=== PATIENT | male | born 1970 | race Caucasian/White ===

== ENCOUNTER 2020-07-24 07:20 | Day surgery (SDC) | payer OTHER ==
[~2020-07-24 07:20] MED LIST: Lactated Ringers 1,000 ML IV SCH; Lidocaine 1%/Sod Bicarbonate in NS 8.4% 1 ML Syringe IDERM PRN; Sodium Chloride 0.9% 10 ML Syringe FLUSH PRN
[2020-07-24] MEDS ORDERED: fentaNYL 100 MCG/2 ML SDV ONE (07:35)
[2020-07-24] MEDS ORDERED: Propofol 200 MG/20 ML SDV ONE ×2 (07:36→08:24)
[2020-07-24] MEDS ORDERED: Lidocaine 1% 4 ML ONE (07:36)
--- NOTE | 2020-07-24 08:06 | PCM.PREANE ---
Preanesthetic Assessment - Procedure Proposed Procedure: Screening Colonoscopy - Anesthesia/Transfusion/Family Hx Anesthesia History: No Prior Anesthesia Family History of Anesthesia Reaction: No - Review of Systems General: Fatigue, Appetite (Weight gain of 50 pounds. ) Pulmonary: No Symptoms (Former Smoker, 5 years ago. ) Cardiovascular: No Symptoms Gastrointestinal: No Symptoms Neurological: No Symptoms Other: Reports: None (Obesity BMI 41, large neck. ), Diabetes (type II, started metformin 1 month ago. ) - Physical Assessment NPO Status Date: 07/24/20 NPO Status Time: 04:45 (Prep) Vital Signs: Last Vital Signs Temp 36.8 C 07/24/20 07:40 Pulse 92 07/24/20 07:40 Resp 16 07/24/20 07:40 BP 141/90 H 07/24/20 07:40 Pulse Ox 97 07/24/20 07:40 Height: 1.83 m Weight: 134.263 kg ASA Class: 3 Mental Status: Alert & Oriented x3 Airway Class: Mallampati = 3 Dentition: Reports: [place](s) (Caps front top x4 ) Thyro-Mental Finger Breadths: 2 Mouth Opening Finger Breadths: 3 ROM/Head Extension: Full Lungs: Clear to Auscultation, Normal Respiratory Effort Cardiovascular: Regular Rate, Regular Rhythm - Allergies Allergies/Adverse Reactions: Allergies Allergy/AdvReac Type Severity Reaction Status Date / Time No Known Allergies Allergy Verified 07/23/20 13:40 - Acknowledgements Anesthesia Type Planned: MAC Pt an Appropriate Candidate for the Planned Anesthesia: Yes Alternatives and Risks of Anesthesia Discussed w Pt/Guardian: Yes Pt/Guardian Understands and Agrees with Anesthesia Plan: Yes PreAnesthesia Questionnaire - Past Health History Medical/Surgical History: Denies Medical/Surgical History HEENT History: Reports: Impaired Vision, Other (See Below) Other HEENT History: WEARS GLASSES Cardiovascular History: Reports: High Cholesterol, Hypertension Respiratory History: Reports: None Gastrointestinal History: Reports: None Genitourinary History: Reports: BPH, Other (See Below) Other Genitourinary History: ERECTILE DYSFUNCTION [employer]ATION [employer]CHITECT History: Reports: None Musculoskeletal History: Reports: Back Pain, Chronic, Fracture Other Musculoskeletal History: pt reports broke back while in [employer] Neurological History: Reports: None Psychiatric History: Reports: None Endocrine/Metabolic History: Reports: Diabetes, Type II, Obesity/BMI 30+ Hematologic History: Reports: None Immunologic History: Reports: None Oncologic (Cancer) History: Reports: None Dermatologic History: Reports: None - Infectious Disease History Infectious Disease History: Reports: Chicken Pox - Past Surgical History Head Surgeries/Procedures: Reports: None Cardiovascular Surgical History: Reports: None Respiratory Surgical History: Reports: None GI Surgical History: Reports: None Female Surgical History: Reports: None Male Surgical History: Reports: None Endocrine Surgical History: Reports: None Neurological Surgical History: Reports: None Oncologic Surgical History: Reports: None Dermatological Surgical History: Reports: None - SUBSTANCE USE Tobacco Use Status *Q: Former Tobacco User - HOME MEDS Home Medications: Home Meds Fish Oil/[place]-3 Fatty Acids [Fish Oil 1,000 MG] 1 gm PO DAILY 07/23/20 [History] atorvaSTATin Calcium [Lipitor] 20 mg PO DAILY 07/23/20 [History] metFORMIN HCl [Metformin HCl] 500 mg PO BEDTIME 07/23/20 [History] - CURRENT (IN HOUSE) MEDS Current Meds: Current Medications Lactated Ringer's (Ringers, Lactated) 1,000 mls @ 125 mls/hr IV ASDIRECTED CEASAR Stop: 07/24/20 23:00 Lidocaine/Sodium Bicarbonate (Lidocaine 1%/Sod Bicarbonate In Ns 8.4% 1 Ml Syringe) 0.25 ml IDERM ONETIME PRN PRN Reason: Prior to IV Start Stop: 07/24/20 18:00 Sodium Chloride (Sodium Chloride 0.9% 10 Ml Syringe) 10 ml FLUSH ASDIRECTED PRN PRN Reason: Keep Vein Open Stop: 07/24/20 18:00 Discontinued Medications Fentanyl (Fentanyl 100 Mcg/2 Ml Sdv) Confirm Administered Dose 100 mcg .ROUTE .STK-MED ONE Stop: 07/24/20 07:36 Lidocaine HCl (Xylocaine-Mpf 1%) Confirm Administered Dose 4 mls @ as directed .ROUTE .STK-MED ONE Stop: 07/24/20 07:37 Propofol (Propofol 200 Mg/20 Ml Sdv) Confirm Administered Dose 400 mg .ROUTE .STK-MED ONE Stop: 07/24/20 07:37
--- NOTE | 2020-07-24 08:35 | PCM.PRNOTE ---
- Free Text/Narrative Note: Date: 07/24/2020 Procedure: initial screening colonoscopy Endoscopist: Austyn Ambriz MD Findings: good prep. Large well circumscribed submucosal mass in cecum consistent with lipoma. Single small pedunculated polyp at hepatic flexure. Detailed Report: The patient was taken to the endoscopy suite and placed in left lateral decubitus position. Timeout was performed and monitored anesthesia care was initiated. Visual inspection of the anus revealed no abnormality and digital rectal exam was unremarkable. The colonoscope was inserted and advanced all the way to the cecum. The appendiceal orifice was visualized. There appeared to be a large, approximately 3 cm submucosal well-circumscribed mass consistent with lipoma at the lateral base of the cecum. Jumbo forceps were used to obtain an adequate sample of the mass in order to confirm diagnosis of benign lipoma. The scope was slowly withdrawn and mucosal surfaces were carefully inspected. Prep was very good. At about the level of the hepatic flexure a less than 1 cm pedunculated polyp was identified. This was removed in its entirety with cold forceps. No other polyps were identified. There was no diverticular disease noted. On retroflexion in the rectum, no hemorrhoids were noted. Air was suctioned from the colon prior to withdrawal of the scope. The patient tolerated the procedure well.
--- NOTE | 2020-07-24 08:41 | PCM48HPAN ---
Post Anesthesia Note - EVALUATION WITHIN 48HRS OF ANESTHETIC Vital Signs in Normal Range: Yes Patient Participated in Evaluation: Yes Respiratory Function Stable: Yes Airway Patent: Yes Cardiovascular Function Stable: Yes Hydration Status Stable: Yes Pain Control Satisfactory: Yes Nausea and Vomiting Control Satisfactory: Yes Mental Status Recovered: Yes Vital Signs: Last Vital Signs 0833 Temp 97.6 F 07/24/20 07:40 Pulse 100 07/24/20 07:40 Resp 16 07/24/20 07:40 BP 115/81 07/24/20 07:40 Pulse Ox 93 RA 07/24/20 07:40
== END 2020-07-24 09:10 | disposition home or self-care (01) ==
LOC: JD.SDS 07:20
PROVIDERS: ATTEND Surgery
DX: Z12.11 Encounter for screening for malignant neoplasm of colon (principal); D12.2 Benign neoplasm of ascending colon; K63.89 Other specified diseases of intestine; I10 Essential (primary) hypertension; E78.5 Hyperlipidemia, unspecified; E78.00 Pure hypercholesterolemia, unspecified; E66.9 Obesity, unspecified; Z68.41 Body mass index [BMI] 40.0-44.9, adult; E11.9 Type 2 diabetes mellitus without complications; Z79.82 Long term (current) use of aspirin; Z87.891 Personal history of nicotine dependence
CPT/HCPCS: 45380; 88305; J2704; J7120; 00812; J3010